=== PATIENT | male | born 1985 | race Caucasian/White ===

== ENCOUNTER 2017-01-09 10:52 | Emergency (ER) | payer SELFPAY ==
[~2017-01-09] VITALS: Ht 177.8 cm; Wt 83.0 kg
[~2017-01-09 10:52] MED LIST: CLIN1CAP6 PO; LEVO750T33 PO; NORC5TAB PO; SUBO2MIS SL; WALKER WHEELS/F1 MIS
[2017-01-09 11:01] VITALS: BP 123/73; PULSE 83; RESP 18; TEMP 98.1; O2SAT 99
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
[2017-01-09] MEDS ORDERED: ORPHENADRINE INJ 60 MG/2 ML AMP IM ONE (11:30)
[2017-01-09] MEDS ORDERED: KETOROLAC TROMETHAMINE 60 MG/2 ML (IM) VIAL IM ONE (11:30)
[2017-01-09] MEDS ORDERED: CLIN1CAP5 PO (11:47)
[2017-01-09] MEDS ORDERED: IBUP800T23 PO (11:47)
[2017-01-09] MEDS ORDERED: FLOR250C PO (11:47)
[2017-01-09] MEDS ORDERED: CYCL1TAB29 PO (11:47)
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
--- NOTE | 2017-01-09 12:04 | RADHPO ---
EXAM DATE/TIME: 01/09/2017 11:36 [facility] COMPARISON: No previous studies available for comparison. INDICATIONS : Right lower leg sores; reoccuring since June. MEDICAL HISTORY : Hepatitis C. SURGICAL HISTORY : None. ENCOUNTER: Initial ACUITY: 4 - 6 months PAIN SCORE: 5/10 LOCATION: Right lower leg. FINDINGS: Two view examination of the right tibia demonstrates no evidence of fracture or dislocation. Bony mi neralization is normal. The soft tissue structures are intact. CONCLUSION: Negative for fracture or dislocation. Bone scan could be more sensitive for occult o steomyelitis. Damon Jacques MD FACR on January 09, 2017 at 12:01 Board Certified Radiologist. This report was verified electronically.
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
[2017-01-09 12:52] VITALS: RESP 18
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
[2017-01-09] MEDS ORDERED: BACT800T5 PO (14:51)
== END 2017-01-09 14:54 | disposition home or self-care (01) ==
LOC: PHEFT 10:52
DX: L03.116 Cellulitis of left lower limb (principal); L03.115 Cellulitis of right lower limb; B95.61 Methicillin susceptible Staphylococcus aureus infection as the cause of diseases classified elsewhere; B96.89 Other specified bacterial agents as the cause of diseases classified elsewhere; F19.10 Other psychoactive substance abuse, uncomplicated; M62.830 Muscle spasm of back; S39.012A Strain of muscle, fascia and tendon of lower back, initial encounter; F17.200 Nicotine dependence, unspecified, uncomplicated; V13.4XXA Pedal cycle driver injured in collision with car, pick-up truck or van in traffic accident, initial encounter; Y93.55 Activity, bike riding; Z86.19 Personal history of other infectious and parasitic diseases; Z87.19 Personal history of other diseases of the digestive system
CPT/HCPCS: 72100; 72148; 73552; 73590; 86403; 87070; 87077; 87186; 87205; 96372; 99284; J1885; J2360

== ENCOUNTER 2018-01-23 09:31 | Inpatient (IN) | payer SELFPAY ==
[2018-01-23] MEDS ORDERED: KETOROLAC TROMETHAMINE 60 MG/2 ML (IM) VIAL IM (10:15)
[2018-01-23 10:42] LABS: AUTOMATED NEUTROPHIL # 20.2 TH/MM3 (1.8-7.7); BASOPHIL # 0.1 TH/MM3 (0-0.2); BASOPHIL % 0.5 % (0.0-2.0); EOSINOPHIL # 0.3 TH/MM3 (0-0.4); EOSINOPHIL % 1.2 % (0.0-4.0); HEMATOCRIT 35.4 % (39.0-51.0); HEMOGLOBIN 12.1 GM/DL (13.0-17.0); LYMPH % 5.8 % (9.0-44.0); LYMPHOCYTE # 1.3 TH/MM3 (1.0-4.8); MEAN CELL VOLUME 84.3 FL (80.0-100.0); MEAN CORPUSCULAR HEMOGLOBIN 28.9 PG (27.0-34.0); MEAN CORPUSCULAR HGB CONC 34.2 % (32.0-36.0); MEAN PLATELET VOLUME 7.3 FL (7.0-11.0); MONO % 4.3 % (0.0-8.0); NEUT % 88.2 % (16.0-70.0); PLATELET COUNT 319 TH/MM3 (150-450); RED CELL DISTRIBUTION WIDTH 14.3 % (11.6-17.2); WHITE BLOOD COUNT 22.9 TH/MM3 (4.0-11.0)
[2018-01-23 10:43] LABS: HEMO FLAGS AUTO DIFF
[2018-01-23] MEDS: VANCOMYCIN INJ 1,500 MG in SODIUM CHLORID 0.9% 500 ML INJ 500 ML IV (10:50)
[2018-01-23] MEDS: ACETAMINOPHEN/HYDROcodone 325 MG/5 MG TAB PO ×2 (10:50→15:46)
[2018-01-23] MEDS: KETOROLAC TROMETHAMINE 30 MG/ML (IVP) VIAL IV PUSH ×2 (10:51→20:41)
[2018-01-23 10:53] LABS: CHLORIDE 102 MEQ/L (98-107); POTASSIUM 3.5 MEQ/L (3.5-5.1); SODIUM (NA) 135 MEQ/L (136-145)
[2018-01-23 10:56] LABS: CALCIUM 8.4 MG/DL (8.5-10.1)
[2018-01-23 10:57] LABS: ALBUMIN 2.1 GM/DL (3.4-5.0); ANION GAP 6 MEQ/L (5-15); BICARBONATE 26.9 MEQ/L (21.0-32.0); BLOOD UREA NITROGEN 12 MG/DL (7-18); GLUCOSE,RANDOM 127 MG/DL (74-106)
[2018-01-23 11:00] LABS: ALT (GPT) 25 U/L (12-78); AST (GOT) 17 U/L (15-37); CREATININE 0.51 MG/DL (0.60-1.30); GLOMERULAR FILTRATION RATE 188 ML/MIN (>89)
[2018-01-23 11:01] LABS: TOTAL BILIRUBIN ADULT 0.3 MG/DL (0.2-1.0); TOTAL PROTEIN 7.2 GM/DL (6.4-8.2)
[2018-01-23 11:03] LABS: LACTIC ACID SEPSIS PROTOCOL 1.4 mmol/L (0.4-2.0)
[2018-01-23 11:03] LABS: ALKALINE PHOSPHATASE 102 U/L (45-117)
[2018-01-23 11:09] LABS: APTT (PATIENT) 25.6 SEC (24.3-30.1)
[2018-01-23 11:12] LABS: SCAN/DIFF AUTO DIFF CONFIRMED
[2018-01-23] MEDS ORDERED: NALOXONE HCL 0.4 MG/ML AMP IV PUSH (12:30)
[2018-01-23] MEDS ORDERED: ACETAMINOPHEN 325 MG TAB PO ×2 (12:30)
[2018-01-23] MEDS ORDERED: ONDANSETRON HCL 4 MG/2 ML VIAL IVP (12:30)
[2018-01-23] MEDS ORDERED: Vancomycin Consult Pharmacy 1 EA OTHER (12:30)
[2018-01-23] MEDS: SODIUM CHLOR 0.9% 1000 ML INJ 1,000 ML IV (14:53)
[2018-01-23] MEDS: POTASSIUM CHLORIDE 20 MEQ CONTROLLED RELEASE TAB PO (14:54)
[2018-01-23] MEDS ORDERED: cloNIDine HCL 0.1 MG TAB PO (15:15)
[2018-01-23 17:05] LABS: BILIRUBIN, URINE NEG (NEG); BLOOD, URINE NEG (NEG); GLUCOSE,URINE NEG (NEG); KETONE, URINE TRACE mg/dL (NEG); NITRITE,URINE NEG (NEG); URINE LEUKOCYTE ESTERASE NEG (NEG)
[2018-01-23 17:16] LABS: COMMENT (UR) CULT NOT INDICATED; CULTURE IF INDICATED CULT NOT INDICATED; RBC, URINE 0-2 /hpf (0-3); SQUAMOUS EPITHELIAL CELL URINE 0-5 /hpf (0-5); URINE COLOR ORANGE (YELLW/STRAW); WBC, URINE 0-2 /hpf (0-5)
[2018-01-23] MEDS: VANCOMYCIN INJ 1,250 MG in SODIUM CHLOR 0.9% 250 ML INJ 250 ML IV (20:30)
[2018-01-23] MEDS: DOCUSATE SODIUM 50 MG/SENNA 8.6 MG TAB PO (20:34)
[2018-01-23] MEDS: SODIUM CHLORIDE 0.9% FLUSH 10 ML FLUSH IV FLUSH (20:34)
[2018-01-24] MEDS: SODIUM CHLOR 0.9% 1000 ML INJ 1,000 ML IV ×3 (04:01→15:27)
[2018-01-24] MEDS: VANCOMYCIN INJ 1,250 MG in SODIUM CHLOR 0.9% 250 ML INJ 250 ML IV ×3 (04:02→21:24)
[2018-01-24] MEDS: KETOROLAC TROMETHAMINE 30 MG/ML (IVP) VIAL IV PUSH ×3 (08:40→21:29)
[2018-01-24] MEDS: DOCUSATE SODIUM 50 MG/SENNA 8.6 MG TAB PO ×2 (08:44→19:26)
[2018-01-24] MEDS: SODIUM CHLORIDE 0.9% FLUSH 10 ML FLUSH IV FLUSH ×3 (08:44→19:26)
[2018-01-24] MEDS: ACETAMINOPHEN/HYDROcodone 325 MG/5 MG TAB PO ×3 (09:48→21:25)
[2018-01-24] MEDS: PHARMACY ORDERED LAB (11:45)
[2018-01-24 12:13] LABS: BASOPHIL % 0.3 % (0.0-2.0); EOSINOPHIL # 0.3 TH/MM3 (0-0.4); EOSINOPHIL % 1.9 % (0.0-4.0); HEMATOCRIT 33.4 % (39.0-51.0); HEMOGLOBIN 11.2 GM/DL (13.0-17.0); LYMPH % 8.1 % (9.0-44.0); LYMPHOCYTE # 1.2 TH/MM3 (1.0-4.8); MEAN CELL VOLUME 84.5 FL (80.0-100.0); MEAN CORPUSCULAR HEMOGLOBIN 28.3 PG (27.0-34.0); MEAN CORPUSCULAR HGB CONC 33.5 % (32.0-36.0); MEAN PLATELET VOLUME 6.9 FL (7.0-11.0); MONOCYTE # 0.9 TH/MM3 (0-0.9); NEUT % 83.7 % (16.0-70.0); PLATELET COUNT 300 TH/MM3 (150-450); RED BLOOD COUNT 3.95 MIL/MM3 (4.50-5.90); WHITE BLOOD COUNT 15.4 TH/MM3 (4.0-11.0)
[2018-01-24 12:15] LABS: HEMO FLAGS DIFF FINAL
[2018-01-24 12:24] LABS: CHLORIDE 108 MEQ/L (98-107); POTASSIUM 4.1 MEQ/L (3.5-5.1); SODIUM (NA) 140 MEQ/L (136-145)
[2018-01-24 12:27] LABS: CALCIUM 8.1 MG/DL (8.5-10.1)
[2018-01-24 12:28] LABS: ALBUMIN 1.8 GM/DL (3.4-5.0); ANION GAP 5 MEQ/L (5-15); BICARBONATE 26.7 MEQ/L (21.0-32.0); BLOOD UREA NITROGEN 14 MG/DL (7-18); GLUCOSE,RANDOM 115 MG/DL (74-106)
[2018-01-24 12:31] LABS: ALT (GPT) 25 U/L (12-78); AST (GOT) 17 U/L (15-37); CREATININE 0.57 MG/DL (0.60-1.30); GLOMERULAR FILTRATION RATE 166 ML/MIN (>89)
[2018-01-24 12:33] LABS: TOTAL BILIRUBIN ADULT 0.2 MG/DL (0.2-1.0); TOTAL PROTEIN 6.5 GM/DL (6.4-8.2)
[2018-01-24 12:34] LABS: ALKALINE PHOSPHATASE 88 U/L (45-117)
[2018-01-24 14:06] LABS: VANCOMYCIN TROUGH 13.4 MCG/ML (5.0-10.0)
[2018-01-25] MEDS: SODIUM CHLOR 0.9% 1000 ML INJ 1,000 ML IV (04:12)
[2018-01-25] MEDS: VANCOMYCIN INJ 1,250 MG in SODIUM CHLOR 0.9% 250 ML INJ 250 ML IV (04:12)
[2018-01-25] MEDS: SODIUM CHLORIDE 0.9% FLUSH 10 ML FLUSH IV FLUSH (10:32)
[2018-01-25] MEDS: KETOROLAC TROMETHAMINE 30 MG/ML (IVP) VIAL IV PUSH (10:32)
[2018-01-25] MEDS: DOCUSATE SODIUM 50 MG/SENNA 8.6 MG TAB PO (10:32)
[2018-01-25] MEDS: ACETAMINOPHEN/HYDROcodone 325 MG/5 MG TAB PO (10:33)
== END 2018-01-25 11:21 | disposition left against medical advice (07) | DRG 872 ==
LOC: PHED 09:31 → PHEDA 11:11 → PH3B 12:09
DX: A41.9 Sepsis, unspecified organism (principal); L03.116 Cellulitis of left lower limb; I10 Essential (primary) hypertension; F19.10 Other psychoactive substance abuse, uncomplicated; B19.20 Unspecified viral hepatitis C without hepatic coma; F17.210 Nicotine dependence, cigarettes, uncomplicated; D64.9 Anemia, unspecified; Z59.0 Homelessness
CPT/HCPCS: 76937; 76999; 80053; 80202; 81001; 83605; 85025; 85610; 85730; 87040; 96365; 96375; 97161-GP; 99285-25

== ENCOUNTER 2018-01-27 10:00 | Emergency (ER) | payer SELFPAY ==
[~2018-01-27] VITALS: Ht 180.3 cm; Wt 82.4 kg
[2018-01-27 10:10] VITALS: BP 144/74; PULSE 84; RESP 18; TEMP 97.8; O2SAT 100
[2018-01-27] MEDS ORDERED: KETOROLAC TROMETHAMINE 60 MG/2 ML (IM) VIAL IM ONE ×2 (10:45→11:45)
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
[2018-01-27 10:56] LABS: AUTOMATED NEUTROPHIL # 5.4 TH/MM3 (1.8-7.7); BASOPHIL # 0.8 TH/MM3 (0-0.2); BASOPHIL % 8.2 % (0.0-2.0); EOSINOPHIL # 0.2 TH/MM3 (0-0.4); EOSINOPHIL % 1.9 % (0.0-4.0); HEMATOCRIT 37.8 % (39.0-51.0); HEMOGLOBIN 12.3 GM/DL (13.0-17.0); LYMPH % 26.8 % (9.0-44.0); LYMPHOCYTE # 2.6 TH/MM3 (1.0-4.8); MEAN CELL VOLUME 84.8 FL (80.0-100.0); MEAN CORPUSCULAR HEMOGLOBIN 27.7 PG (27.0-34.0); MEAN CORPUSCULAR HGB CONC 32.7 % (32.0-36.0); MONO % 7.4 % (0.0-8.0); MONOCYTE # 0.7 TH/MM3 (0-0.9); NEUT % 55.7 % (16.0-70.0); PLATELET COUNT 330 TH/MM3 (150-450); RED BLOOD COUNT 4.45 MIL/MM3 (4.50-5.90); RED CELL DISTRIBUTION WIDTH 14.3 % (11.6-17.2); WHITE BLOOD COUNT 9.7 TH/MM3 (4.0-11.0)
[2018-01-27] MEDS ORDERED: BACT800T5 PO (11:18)
[2018-01-27] MEDS ORDERED: IBUP1TAB7 PO (11:19)
[2018-01-27 11:25] LABS: BANDS 2 % (0-6); LYMPHOCYTES 27 % (9-44); MONOCYTES 7 % (0-8); NEUTROPHIL # MANUAL DIFF 6.2 TH/MM3 (1.8-7.7); POLYS (SEG NEUTROPHILS) 62 % (16-70)
[2018-01-27] MEDS ORDERED: SULFAMETHOXAZOLE-TRIMETHOPRIM DS 800-160 MG TAB PO ONE (11:30)
== END 2018-01-27 11:47 | disposition home or self-care (01) ==
LOC: PHEFT 10:00
DX: L03.115 Cellulitis of right lower limb (principal)
CPT/HCPCS: 85007; 85027; 96372; 99283; J1885